=== PATIENT | male | born 1970 | race Caucasian/White ===

== ENCOUNTER 2018-03-04 18:33 | Emergency (ER) | payer MEDICAID, OTHER ==
[~2018-03-04] VITALS: Ht 180.3 cm; Wt 79.5 kg
[2018-03-04] MEDS ORDERED: ketorolac trometh. 30mg/ml inj. IV ONE (19:05)
[2018-03-04] MEDS ORDERED: normal saline 1000ML IV soln IVB ONE (19:05)
[2018-03-04 19:14] LABS: BASOPHILS % (AUTO) 0.4 % (0-1); EOSINOPHILS % (AUTO) 0.3 % (0-6); HEMATOCRIT 43.4 % (42.0-52.0); HEMOGLOBIN 14.2 g/dl (14.0-17.9); LYMPHOCYTES # (AUTO) 1.7 X10'3 (1.1-4.8); LYMPHOCYTES % (AUTO) 24.3 % (21-51); MEAN CORPUSCULAR HEMOGLOBIN 30.7 PG (27.0-31.0); MEAN CORPUSCULAR HGB CONC 32.7 % (33.0-36.5); MEAN CORPUSCULAR VOLUME 94.1 FL (78-98); MEAN PLATELET VOLUME 7.6 FL (7.4-10.4); MONOCYTES # (AUTO) 0.3 X10'3 (0-0.9); MONOCYTES % (AUTO) 3.8 % (2-12); NEUTROPHILS % (AUTO) 71.2 % (42-75); PLATELET COUNT 299 X10'3 (140-440); RED BLOOD COUNT 4.61 X10'6 (4.70-6.10); RED CELL DISTRIBUTION WIDTH 12.8 % (11.5-14.5)
[2018-03-04 19:20] LABS: ALANINE AMINOTRANSFERASE 126 U/L (12-78); ALBUMIN 4.1 G/DL (3.4-5.0); ALBUMIN/GLOBULIN RATIO 1.1 (1.1-1.5); ALKALINE PHOSPHATASE 64 IU/L (46-116); ANION GAP 18 (8-16); ASPARTATE AMINO TRANSFERASE 134 U/L (10-37); BILIRUBIN,TOTAL 0.2 MG/DL (0.1-1.0); BLOOD UREA NITROGEN 10 MG/DL (7-18); BUN/CREATININE RATIO 10.4 (5.4-32.0); CALCIUM 8.3 MG/DL (8.5-10.1); CHLORIDE 104 MMOL/L (99-107); CREATININE 0.96 MG/DL (0.60-1.10); GLUCOSE 97 MG/DL (70-104); POTASSIUM 3.6 MMOL/L (3.5-5.1); SODIUM 145 MMOL/L (135-145); TOTAL CARBON DIOXIDE 23.1 MMOL/L (24-32); TOTAL PROTEIN 7.8 G/DL (6.4-8.2); eGFR 84 ML/MIN
[2018-03-04 19:25] LABS: INR 0.9 INR; PARTIAL THROMBOPLASTIN TIME 23 SECONDS (22-32); PROTHROMBIN TIME 9.6 SECONDS (9.0-12.0)
--- NOTE | 2018-03-04 19:26 | NUR ---
TRAUMA DOWNGRADED BY DR RIOJAS AT 191
[2018-03-04 20:05] VITALS: BP 136/77
== END 2018-03-04 20:46 | disposition home or self-care (01) ==
LOC: ER 18:33
DX: S42.001A Fracture of unspecified part of right clavicle, initial encounter for closed fracture (principal); S80.212A Abrasion, left knee, initial encounter; S80.811A Abrasion, right lower leg, initial encounter; V89.9XXA Person injured in unspecified vehicle accident, initial encounter; Y93.89 Activity, other specified; Y92.410 Unspecified street and highway as the place of occurrence of the external cause; Y99.8 Other external cause status
CPT/HCPCS: 36415; 71045; 80053; 84484; 85025; 85610; 85730; 93005; 96374; 99284; J1885; J7030